=== PATIENT | female | born 1985 | race Caucasian/White ===

== ENCOUNTER → 2016-05-20 | Outpatient (CLI) | payer MEDICAID ==
[~2016-05-20] MED LIST: ACETAMINOPHEN-O1 TAB PO; ALBUTEROL0.09 MG/A2 IH; ALBUTEROL2.5 MG/0.5 INH; AMOXICILLIN875 MG PO; ANAPROX DS550 MG PO; ANTIVERT/2525 M1 PO; AVPAK AZITHROM250 M1 PO; BIAXIN500 MG PO; CLARITIN10 MG PO; FLONASE ALLERG9.9 ML NAS; FLONASE ALLERG9.9 ML NS; LIDOCAINE 2% T; LOTRIMIN 1%15 GM T; MEDROL DOSEPAK4 MG PO; MOBIC15 MG PO; MOTRIN800 MG PO; Motrin,Rufen800 MG PO; NAPROSYN500 MG PO; NEURONTIN100 MG PO; NICOTINE T21 MG/24 H TD; NKHM; NORTRIPTYLINE10 MG PO; OMEPRAZOLE20 MG PO; PEPCID20 MG PO; PERCOCET 325 MG1 TA2 PO; PHENERGAN25 M1 PO; PREDNISONE10 MG PO; PROVENTIL0.09 MG/AC IH; ROBITUSSIN AC 110 ML PO; SERTRALINE HYD100 MG PO; TOBREX OPHTH S2.5 ML OPH; VIBRAMYCIN100 MG PO; VISTARIL25 M1 PO; ZANTAC150 MG PO; ZITHROMAX Z PA250 MG PO; ZITHROMAX250 MG PO; ZOFRAN ODT4 MG SL; ZOFRAN4 MG PO; ZYRTEC10 MG PO
== END | disposition home or self-care (01) ==
LOC: US 12:44
DX: N64.4 Mastodynia (principal); R21 Rash and other nonspecific skin eruption

== ENCOUNTER 2018-03-11 19:52 | Emergency (ER) | payer OTHER ==
[~2018-03-11] VITALS: Ht 165.1 cm; Wt 72.6 kg
[~2018-03-11 19:52] MED LIST changes: +ADIPEX-P37.5 MG PO; +CIPRO500 MG PO; +ESTRADIOL1 EAC1 TD; +FLAGYL500 MG PO; +NORCO 5-325 TA1 EACH PO; +TEMAZEPAM15 M1 PO
[2018-03-11] MEDS ORDERED: AMOXICILLIN500 M2 PO (20:22)
[2018-03-11] MEDS ORDERED: ZYRTEC10 MG PO (20:22)
[2018-03-11] MEDS ORDERED: FLONASE ALLERG9.9 ML NAS (20:22)
== END 2018-03-11 20:32 | disposition home or self-care (01) ==
LOC: ED 19:52
DX: J01.90 Acute sinusitis, unspecified (principal); J02.9 Acute pharyngitis, unspecified; R13.10 Dysphagia, unspecified; Z91.040 Latex allergy status; Z88.8 Allergy status to other drugs, medicaments and biological substances

== ENCOUNTER 2018-04-10 15:09 | Emergency (ER) | payer OTHER ==
[~2018-04-10] VITALS: Ht 165.1 cm; Wt 76.2 kg
[~2018-04-10 15:09] MED LIST changes: +AMOXICILLIN500 M2 PO
[2018-04-10] MEDS ORDERED: OFLOXACIN OTIC5 ML OPH (15:30)
[2018-04-10] MEDS ORDERED: OMNICEF300 MG PO (15:30)
== END 2018-04-10 15:39 | disposition home or self-care (01) ==
LOC: ED 15:09
DX: H60.501 Unspecified acute noninfective otitis externa, right ear (principal); Z91.040 Latex allergy status; Z88.8 Allergy status to other drugs, medicaments and biological substances; Z90.710 Acquired absence of both cervix and uterus

== ENCOUNTER 2019-11-29 11:27 | Emergency (ER) | payer OTHER ==
[~2019-11-29] VITALS: Ht 165.1 cm; Wt 83.0 kg
[~2019-11-29 11:27] MED LIST changes: +OFLOXACIN OTIC5 ML OPH; +OMNICEF300 MG PO
[2019-11-29 12:17] LABS: BASO % 0.3 % (0.0-1.0); EOS # 0.1 10*3/uL (0.0-0.4); EOS % 1.7 % (1.0-4.0); HEMATOCRIT 39.2 % (37.0-47.0); LYMPH # 1.9 10*3/uL (1.3-4.4); LYMPH % 30.8 % (27.0-41.0); MEAN CELL VOLUME 92.7 fl (81.0-99.0); MEAN CORPUSCULAR HGB CONC 33.4 g/dl (33.0-37.0); MEAN PLATELET VOLUME 10.6 fl (9.6-12.3); MONO # 0.5 10*3/uL (0.1-1.0); MONO % 8.1 % (3.0-9.0); NEUT # 3.7 10*3/uL (2.3-7.9); NEUT % 58.6 % (47.0-73.0); PLATELET COUNT AUTOMATED 190 10*3/uL (130-400); RED BLOOD COUNT 4.23 10*6/uL (4.10-5.10); WHITE BLOOD COUNT 6.3 10*3/uL (4.8-10.8)
[2019-11-29 12:35] LABS: ALBUMIN 3.6 gm/dl (3.1-4.5); ALKALINE PHOSPHATASE 61 U/L (45-117); BUN 9 mg/dl (7-24); CHLORIDE 108 mmol/L (98-107); CREATININE 0.63 mg/dL (0.55-1.02); LIPASE 50 U/L (73-393); POTASSIUM 3.5 mmol/L (3.5-5.1); SGOT/AST 16 IU/L (3-35); SGPT/ALT 37 U/L (12-78); SODIUM 137 mmol/L (136-145)
[2019-11-29 12:38] LABS: B-hCG (QUALITATIVE) NEGATIVE (NEGATIVE)
[2019-11-29 13:25] LABS: BILIRUBIN Negative (Negative); BLOOD Negative (Negative); CLARITY Clear (Clear); COLOR Yellow (Yellow); GLUCOSE Negative (Negative); KETONE Negative (Negative); LEUKO ESTERASE Negative (Negative); NITRITE Negative (Negative); PH 7.5 (4.5-8.0); UROBILINOGEN 0.2 E.U./dl (0.0-1.0)
[2019-11-29 13:34] LABS: BACTERIA TRACE; WBC 0-2 wbc/hpf (0-5)
[2019-11-29] MEDS ORDERED: DICYCLOMINE HCL10 MG PO (14:21)
== END 2019-11-29 14:58 | disposition home or self-care (01) ==
LOC: ED 11:27
PROVIDERS: Physician Assistant
DX: R10.11 Right upper quadrant pain (principal); R11.10 Vomiting, unspecified; Z91.040 Latex allergy status; Z88.8 Allergy status to other drugs, medicaments and biological substances

== ENCOUNTER 2020-04-27 16:51 | Emergency (ER) | payer OTHER ==
[~2020-04-27] VITALS: Ht 165.1 cm; Wt 86.2 kg
[~2020-04-27 16:51] MED LIST changes: +DICYCLOMINE HCL10 MG PO
[2020-04-27 17:34] LABS: BASO % 0.3 % (0.0-1.0); EOS # 0.3 10*3/uL (0.0-0.4); EOS % 3.6 % (1.0-4.0); HEMATOCRIT 40.1 % (37.0-47.0); LYMPH % 28.2 % (27.0-41.0); MEAN CELL VOLUME 91.1 fl (81.0-99.0); MEAN CORPUSCULAR HGB 31.1 pg (27.0-31.0); MEAN CORPUSCULAR HGB CONC 34.2 g/dl (33.0-37.0); MEAN PLATELET VOLUME 10.5 fl (9.6-12.3); MONO # 0.6 10*3/uL (0.1-1.0); MONO % 8.3 % (3.0-9.0); NEUT # 4.1 10*3/uL (2.3-7.9); NEUT % 59.5 % (47.0-73.0); PLATELET COUNT AUTOMATED 219 10*3/uL (130-400); RED CELL DISTRI WIDTH 11.9 % (0-14.5)
[2020-04-27 17:50] LABS: ALBUMIN 3.5 gm/dl (3.1-4.5); ALKALINE PHOSPHATASE 60 U/L (45-117); BUN 13 mg/dl (7-24); CHLORIDE 109 mmol/L (98-107); CREATININE 0.61 mg/dL (0.55-1.02); LIPASE 75 U/L (73-393); POTASSIUM 3.9 mmol/L (3.5-5.1); SGOT/AST 10 IU/L (3-35); SGPT/ALT 26 U/L (12-78); SODIUM 142 mmol/L (136-145); TOTAL PROTEIN 6.6 gm/dL (6.4-8.2)
[2020-04-27 17:51] LABS: FREE T4 0.85 ng/dl (0.76-1.46); TROPONIN I < 0.015 ng/ml (<0.045)
[2020-04-27 17:54] LABS: BILIRUBIN Negative (Negative); BLOOD Negative (Negative); CLARITY Clear (Clear); COLOR Yellow (Yellow); GLUCOSE Negative (Negative); KETONE Negative (Negative); LEUKO ESTERASE Negative (Negative); NITRITE Negative (Negative); SPECIFIC GRAVITY 1.015 (1.001-1.030); UROBILINOGEN 0.2 E.U./dl (0.0-1.0)
[2020-04-27 18:11] LABS: BACTERIA TRACE; EPITHELIAL CELLS 16-20
[2020-04-27] MEDS ORDERED: OMEPRAZOLE20 M2 PO (18:36)
[2020-04-27] MEDS ORDERED: PEPCID20 MG PO (18:36)
== END 2020-04-27 19:09 | disposition home or self-care (01) ==
LOC: ED 16:51
PROVIDERS: Physician Assistant
DX: R10.9 Unspecified abdominal pain (principal); Z91.040 Latex allergy status; Z88.8 Allergy status to other drugs, medicaments and biological substances; Z79.899 Other long term (current) drug therapy; Z98.890 Other specified postprocedural states; Z90.711 Acquired absence of uterus with remaining cervical stump

== ENCOUNTER 2022-07-29 11:55 | Emergency (ER) | payer OTHER, BC ==
[~2022-07-29] VITALS: Ht 165.1 cm; Wt 81.6 kg
[~2022-07-29 11:55] MED LIST changes: +OMEPRAZOLE20 M2 PO
== END 2022-07-29 13:19 | disposition home or self-care (01) ==
LOC: ED 11:55
DX: M79.675 Pain in left toe(s) (principal); Z91.040 Latex allergy status; Z88.8 Allergy status to other drugs, medicaments and biological substances; Z79.899 Other long term (current) drug therapy; Z98.890 Other specified postprocedural states; Z90.710 Acquired absence of both cervix and uterus; W23.0XXA Caught, crushed, jammed, or pinched between moving objects, initial encounter; Y93.89 Activity, other specified; Y92.89 Other specified places as the place of occurrence of the external cause; Y99.8 Other external cause status

== ENCOUNTER 2024-08-22 11:29 | Emergency (ER) | payer OTHER ==
[~2024-08-22] VITALS: Ht 165.1 cm; Wt 87.1 kg
[2024-08-22] MEDS ORDERED: PREDNISONE20 M1 PO (11:32)
[2024-08-22] MEDS ORDERED: methylPREDNISolone sod succ 125 MG VIAL IM ONE (11:35)
== END 2024-08-22 11:44 | disposition home or self-care (01) ==
LOC: ED 11:29
DX: L23.7 Allergic contact dermatitis due to plants, except food (principal); F41.9 Anxiety disorder, unspecified; Z79.899 Other long term (current) drug therapy; Z88.8 Allergy status to other drugs, medicaments and biological substances; Z91.040 Latex allergy status; Z90.710 Acquired absence of both cervix and uterus; Z98.51 Tubal ligation status; Z98.890 Other specified postprocedural states

== ENCOUNTER → 2024-09-26 | Outpatient (CLI) | payer OTHER ==
[~2024-09-26] MED LIST changes: +PREDNISONE20 M1 PO
== END | disposition home or self-care (01) ==
LOC: ORTHO 01:25
PROVIDERS: ATTEND Orthopaedic Surgery
DX: S92.351D Displaced fracture of fifth metatarsal bone, right foot, subsequent encounter for fracture with routine healing (principal); X58.XXXD Exposure to other specified factors, subsequent encounter

== ENCOUNTER → 2024-10-22 | Outpatient (CLI) | payer SELFPAY | LOC: RAD 13:01 | PROVIDERS: ATTEND Orthopaedic Surgery | DX: S92.353D Displaced fracture of fifth metatarsal bone, unspecified foot, subsequent encounter for fracture with routine healing (principal); X58.XXXD Exposure to other specified factors, subsequent encounter ==